=== PATIENT | female | born 1940 | race Caucasian/White ===

== ENCOUNTER 2023-01-07 09:21 | Emergency (ER) | payer OTHER, BC ==
[2023-01-07 10:19] VITALS: BP 159/101; PULSE 90; RESP 20; TEMP 98.4; BMI 27.2
[2023-01-07 12:12] LABS: EPITHELIAL CELLS MODERATE /hpf
[2023-01-07 12:13] LABS: CALCIUM OXALATE CRYSTALS MODERATE /hpf (NONE SEEN)
[2023-01-07] MEDS ORDERED: ACETAMINOPHEN 325 MG TABLET (FP) ONE (12:49)
[2023-01-07] MEDS ORDERED: ACETAMINOPHEN 325 MG TABLET (FP) PO ONE (12:49)
== END 2023-01-07 12:32 | disposition home or self-care (01) ==
LOC: FER 09:21
DX: M54.42 Lumbago with sciatica, left side (principal)
CPT/HCPCS: 81003; 81015; 87086; 87186; 99283-25

== ENCOUNTER 2023-01-14 07:49 | Emergency (ER) | payer OTHER, BC ==
[2023-01-14 07:58] VITALS: BP 152/90; PULSE 92; RESP 20; TEMP 98.2; BMI 25.2
[2023-01-14] MEDS ORDERED: LIDOCAINE 5% TOPICAL PATCH TP ONE (08:12)
[2023-01-14] MEDS ORDERED: LIDOCAINE 5% TOPICAL PATCH ONE (08:25)
[2023-01-14] MEDS ORDERED: LIDOCAINE PATCH REMOVAL MC SCH (22:00)
== END 2023-01-14 10:25 | disposition home or self-care (01) ==
LOC: FER 07:49
DX: M54.40 Lumbago with sciatica, unspecified side (principal); M79.605 Pain in left leg; G89.29 Other chronic pain
CPT/HCPCS: 99283-25

== ENCOUNTER 2023-01-16 09:07 | Emergency (ER) | payer OTHER, BC ==
[2023-01-16 09:14] VITALS: RESP 20; TEMP 98.3; BMI 25.2
[2023-01-16 12:00] VITALS: BP 140/74; PULSE 98
== END 2023-01-16 12:18 | disposition home or self-care (01) ==
LOC: FER 09:07
DX: T50.901A Poisoning by unspecified drugs, medicaments and biological substances, accidental (unintentional), initial encounter (principal)
CPT/HCPCS: 99283-25

== ENCOUNTER 2023-08-05 07:20 | Emergency (ER) | payer OTHER, BC ==
[2023-08-05 07:38] VITALS: BP 158/86; PULSE 85; RESP 20; TEMP 97.9; BMI 27.2
[2023-08-05 10:42] LABS: HEMATOCRIT 39.5 % (32.4-45.2); HEMOGLOBIN 13.3 G/dL (10.7-15.3); MCH 32.5 pg (25.7-33.7); MCHC 33.6 g/dl (32.0-36.0); MEAN CELL VOLUME 96.5 fl (80-96); MEAN PLT VOLUME 7.9 fl (7.5-11.1); PLATELET COUNT 152.4 10^3/uL (134-434); RBC 4.09 10^6/uL (3.60-5.2); WHITE BLOOD COUNT 4.8 10^3/uL (4.0-10.8)
[2023-08-05 10:47] LABS: INR 1.12 (0.83-1.09)
[2023-08-05 10:59] LABS: ALBUMIN 4.5 g/dl (3.4-5.0); BILIRUBIN,TOTAL 0.9 mg/dl (0.2-1); CALCIUM 9.2 mg/dl (8.5-10.1); CREATININE 0.5 mg/dl (0.6-1.3); POTASSIUM 3.5 mmol/L (3.5-5.1); TOT PROT 6.2 g/dl (6.4-8.2)
[2023-08-05 11:23] LABS: ANISOCYTOSIS 1+; PLATELET ESTIMATE ADEQUATE
[2023-08-05] MEDS: CITALOPRAM HYDROBROMIDE 20 MG TABLET PO ONE (13:51)
== END 2023-08-05 13:51 | disposition home or self-care (01) ==
LOC: FER 07:20
DX: K59.00 Constipation, unspecified (principal); R10.31 Right lower quadrant pain; R11.2 Nausea with vomiting, unspecified; K62.89 Other specified diseases of anus and rectum
CPT/HCPCS: 36415; 74176-TC; 80053; 83605; 84484; 85027; 85610; 86850; 86900; 86901; 99284-25

== ENCOUNTER 2024-01-29 12:09 | Emergency (ER) | payer OTHER, BC ==
[2024-01-29] MEDS: ACETAMINOPHEN 325 MG TABLET (FP) PO ONE (12:56)
[2024-01-29] MEDS ORDERED: ACETAMINOPHEN 325 MG TABLET (FP) ONE (13:20)
[2024-01-29 15:11] VITALS: BP 141/92; PULSE 84; RESP 20; TEMP 97.7; BMI 27.2
== END 2024-01-29 14:17 | disposition home or self-care (01) ==
LOC: FER 12:09
DX: M25.552 Pain in left hip (principal); M79.652 Pain in left thigh; W18.30XA Fall on same level, unspecified, initial encounter
CPT/HCPCS: 73502-TC-LT-FY; 99283-25